=== PATIENT | male | born 1990 | race Two or more races ===

== ENCOUNTER 2020-09-10 10:48 | Emergency (ER) | payer OTHER, SELFPAY ==
[~2020-09-10] VITALS: Ht 182.9 cm; Wt 90.7 kg
[2020-09-10 10:50] VITALS: Ht 182.9 cm; Wt 90.7 kg
[2020-09-10 11:56] VITALS: BP 132/91
== END 2020-09-10 11:56 | disposition home or self-care (01) ==
LOC: ED 10:48
DX: R05 Cough (principal); Z20.828 Contact with and (suspected) exposure to other viral communicable diseases
CPT/HCPCS: U0003-CS